=== PATIENT | male | born 1945 | race Caucasian/White ===

== ENCOUNTER 2017-03-31 19:20 | Inpatient (IN) | payer MEDICAID, OTHER ==
[~2017-03-31] VITALS: Ht 162.6 cm; Wt 119.3 kg
[2017-03-31] MEDS ORDERED: ONDANSETRON 4 MG INJ IV STA (21:20)
[2017-03-31] MEDS ORDERED: SOD CHLORIDE 0.9% 500 ML IV STA (21:20)
[2017-03-31] MEDS ORDERED: morphine 4 MG/ML VIAL IV STA (21:20)
[2017-03-31 22:22] LABS: BASOPHIL # 0.1 10^3/ul (0.0-0.1); BASOPHILS % 0.7 % (0.0-2.0); EOSINOPHILS # 0.1 10^3/ul (0.0-0.5); EOSINOPHILS % 0.6 % (0.0-7.0); HEMATOCRIT 45.8 % (42.0-52.0); HEMOGLOBIN 15.4 g/dl (14.0-18.0); LYMPHOCYTES # 2.2 10^3/ul (0.8-2.9); LYMPHOCYTES % 17.7 % (15.0-51.0); MEAN CORPUSCULAR HEMOGLOBIN 29.1 pg (29.0-33.0); MEAN CORPUSCULAR HGB CONC 33.6 g/dl (32.0-37.0); MEAN CORPUSCULAR VOLUME 86.4 fl (82.0-101.0); MEAN PLATELET VOLUME 9.6 fl (7.4-10.4); MONOCYTE # 0.6 10^3/ul (0.3-0.9); MONOCYTES % 5.2 % (0.0-11.0); NEUTROPHILS % 75.4 % (39.0-77.0); PLATELET COUNT 263 10^3/UL (140-415); RED CELL DISTRIBUTION WIDTH 13.3 % (11.5-14.5); WHITE BLOOD COUNT 12.3 10^3/ul (4.8-10.8)
[2017-03-31 22:50] LABS: ALANINE AMINOTRANSFERASE 31 IU/L (13-69); ALBUMIN 4.6 g/dl (3.3-4.9); ALBUMIN/GLOBULIN RATIO 1.12; ALKALINE PHOSPHATASE 105 IU/L (42-121); ANION GAP 19 (8-16); ASPARTATE AMINO TRANSFERASE 23 IU/L (15-46); BILIRUBIN,INDIRECT 0.2 mg/dl (0-1.1); BILIRUBIN,TOTAL 0.2 mg/dl (0.2-1.3); BLOOD UREA NITROGEN 15 mg/dl (7-20); CALCIUM 9.9 mg/dl (8.4-10.2); CARBON DIOXIDE 29 mmol/L (21-31); CHLORIDE 101 mmol/L (97-110); CREATININE 0.93 mg/dl (0.61-1.24); GLUCOSE 126 mg/dl (70-220); SODIUM 145 mmol/L (135-144); TOTAL PROTEIN 8.7 g/dl (6.1-8.1)
--- NOTE | 2017-03-31 22:57 | RADRPT ---
PROCEDURE: XR Chest. CLINICAL INDICATION: Epigastric pain. TECHNIQUE: Single frontal view of the chest. COMPARISON: None. FINDINGS: Cardiomegaly. Hypoinflated lungs accentuate pulmonary vascular markings with mild atelectasis at th e bilateral lung bases. There is a mild degree of pulmonary vascular congestion. No signs of pleura l fluid or pneumothorax are seen. The osseous structures and soft tissues are unremarkable. IMPRESSION: Cardiomegaly and mild pulmonary vascular congestion. RPTAT: [facility] Physician Mati Date Time Electronically viewed and signed by Physician Mati on 03/31/2017 22:56 RS/
[2017-03-31 23:04] LABS: TROPONIN-I < 0.012 ng/ml (0.00-0.12)
--- NOTE | 2017-03-31 23:08 | RADRPT ---
PROCEDURE: ULTRASOUND LIMITED ABDOMEN CLINICAL INDICATION: 71-year-old male with abdominal pain. TECHNIQUE: Multiple sonographic of the right upper quadrant of the abdomen were obtained. The imag es were reviewed on a PACS workstation. COMPARISON: None. FINDINGS: The pancreas is not well visualized secondary to overlying bowel gas. The liver displays diffuse increased echogenicity consistent with fatty infiltration. The liver yady sures 20.4 cm in length. No evidence of intrahepatic biliary ductal dilatation is seen. The portal and hepatic veins are unremarkable. The gallbladder demonstrates no wall thickening, sludge, nor stones. No pericholecystic fluid is see n. The common bile duct measures 3.4 mm and is not dilated. The right kidney displays normal echogenicity. The right kidney measures 10.2 cm in maximal length. No caliectasis or hydronephrosis is seen. No free fluid is seen. IMPRESSION: Hepatomegaly with fatty infiltration. .Alpesh Salomon MD, MD Date Time Electronically viewed and signed by .Alpesh Salomon MD, on 03/31/2017 23:08 .Yash/
[2017-04-01] VITALS (17 sets, daily range): BP systolic 136–185; BP diastolic 72–103; PULSE 67–86; RESP 13–20; Ht 162.6 cm; Wt 119.3 kg
[2017-04-01] MEDS ORDERED: HYDROCODONE/APAP (10/325) TAB PO ONE
--- NOTE | 2017-04-01 00:26 | RADRPT ---
PROCEDURE: CT abdomen and pelvis without contrast. CLINICAL INDICATION: Abdominal pain TECHNIQUE: CT scan of the abdomen and pelvis without contrast was performed. Sagittal and coronal reformatted images were obtained from the axial source images. CTDI = 23.48 mGy; DLP = 1004 of 41.1 4 mGy-cm COMPARISON: Ultrasound 03/31/2017 FINDINGS: Visualized lower thorax: Incidental calcified granuloma right lower lobe, no evidence of infiltrate s. There is no evidence for pleural effusion. Liver, gallbladder, pancreas and spleen: The liver is normal and size, contour and attenuation. Mu ltiple rounded water attenuating right hepatic lobe lesions compatible with cysts the largest estima zoraida at and 7.8 cm. No evidence of ductal dilatation. Multiple calcified gallstones are present. T here is no evidence of gallbladder wall thickening or pericholecystic inflammation. No common bile duct abnormality is demonstrated. The pancreas is unremarkable. The spleen is normal in size. Adrenal glands and genitourinary system: Ovoid hypodense nodule of 1.6 cm in the medial right adrena l gland likely an adenoma. The left adrenal gland is unremarkable. In the right kidney there are t iny 1 mm calculi in the interpolar and lower pole region without hydronephrosis. An additional tiny 1 mm interpolar left renal calculus is present without hydronephrosis. The ureters are unremarkabl e. Urinary bladder is partially contracted but otherwise grossly normal. The prostate gland is with in normal limits for size. The visualized scrotum shows no acute abnormality, a small fat-containin g left inguinal hernia is present. Gastrointestinal system: The stomach is normal in caliber without thickening. There is mild disten irene of the jejunum measuring 3.3 cm extending into a supraumbilical ventral hernia with there is a dilated loop of small bowel, the size of the hernia sac approximately 5 cm (series 3 images 91-102). There is collapse of the small bowel distal to the abnormality. The appendix and surrounding fat are within the limits of normal. 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 There is no [place] for colitis or diverticulitis. Peritoneum, retroperitoneum, lymph nodes and vessels: The abdominal aorta is normal in caliber. The re is mild aortic and iliac atherosclerotic calcification. The inferior vena cava is unremarkable. There is no evidence for adenopathy or mass. There is no ascites. No pneumoperitoneum is present. A small fat-containing umbilical hernia is present. Osseous structures and musculoskeletal findings: There is no fracture, lytic or blastic lesion. Mo derate multilevel degenerative spondylosis of the lumbar spine is noted. No muscular abnormality or soft tissue pathology is present. RPTAT:HJJR IMPRESSION: 1. Partial proximal small bowel obstruction related to a ventral supraumbilical hernia estimated at 5 cm and containing mildly dilated loop of jejunum. Collapse of the small bowel distal to the herni a is present. Follow-up evaluation is recommended. 2. No evidence of ascites or pneumoperitoneum. 3. Incidental hepatic cysts. 4. Cholelithiasis without cholecystitis. 5. Tiny nonobstructing intrarenal calculi. 6. Small left inguinal and pedicle fat-containing hernias. 7. Aortic atherosclerosis is present. Physician Urszula Date Time Electronically viewed and signed by Physician Urszula on 04/01/2017 00:26 /
[2017-04-01 00:52] LABS: ADD UMIC NO; UR ASCORBIC ACID NEGATIVE (NEGATIVE); UR BILIRUBIN (Dip) NEGATIVE (NEGATIVE); UR BLOOD (Dip) NEGATIVE (NEGATIVE); UR CLARITY CLEAR (CLEAR); UR COLOR STRAW (YELLOW); UR GLUCOSE (Dip) NEGATIVE (NEGATIVE); UR KETONES (Dip) NEGATIVE (NEGATIVE); UR LEUKOCYTE ESTERASE (Dip) NEGATIVE Leu/ul (NEGATIVE); UR NITRITE (Dip) NEGATIVE (NEGATIVE); UR SPECIFIC GRAVITY (Dip) 1.013 (1.003-1.030); UR TOTAL PROTEIN (Dip) NEGATIVE (NEGATIVE); UR UROBILINOGEN (Dip) NEGATIVE (NEGATIVE)
--- NOTE | 2017-04-01 01:33 | ERA ---
ER Documentation Chief Complaint Date/Time DATE: 04/01/17 TIME: 01:30 Chief Complaint mid abd pain x 1 day HPI 71-year-old male comes in with abdominal pain 1 day. Mild nausea no vomiting. Pain is mild to moderate intensity. He says he feels a "ball "right above his bellybutton. No other current complaints. Bowel is been there for 2-3 months. ROS All systems reviewed and are negative except as per history of present illness. Medications Home Meds No Active Prescriptions or Reported Meds Allergies Allergies: Coded Allergies: No Known Allergy (Unverified , 03/31/17) PMhx/Soc History of Surgery: Yes (Darrin Knee Surg) Anesthesia Reaction: No Hx Neurological Disorder: No Hx Respiratory Disorders: No Hx Cardiac Disorders: No Hx Psychiatric Problems: No Hx Miscellaneous Medical Probl: Yes (OA) Hx Alcohol Use: No Hx Substance Use: No Hx Tobacco Use: No Smoking Status: Never smoker Physical Exam Vitals Vital Signs Date Time Temp Pulse Resp B/P Pulse Ox O2 Delivery O2 Flow Rate FiO2 04/01/17 00:51 71 15 169/105 94 Room Air 03/31/17 19:27 97.7 83 20 231/129 97 Physical Exam Const: [] Head: Atraumatic Eyes: Normal Conjunctiva ENT: Normal External Ears, Nose and Mouth. Neck: Full range of motion..~ No meningismus. Resp: Clear to auscultation bilaterally Cardio: Regular rate and rhythm, no murmurs Abd: Soft, non tender, non distended. Normal bowel sounds Skin: No petechiae or rashes Back: No midline or flank tenderness Ext: No cyanosis, or edema Neur: Awake and alert Psych: Normal Mood and Affect Result Diagram: 03/31/17214403/31/172144 Results 24 hrs Laboratory Tests Test 03/31/17 21:45 03/31/17 23:45 White Blood Count 12.310^3/ul Red Blood Count 5.3010^6/ul Hemoglobin 15.4g/dl Hematocrit 45.8% Mean Corpuscular Volume 86.4fl Mean Corpuscular Hemoglobin 29.1pg Mean Corpuscular Hemoglobin Concent 33.6g/dl Red Cell Distribution Width 13.3% Platelet Count 11842^3/UL Mean Platelet Volume 9.6fl Neutrophils % 75.4% Lymphocytes % 17.7% Monocytes % 5.2% Eosinophils % 0.6% Basophils % 0.7% Nucleated Red Blood Cells % 0.0/100WBC Neutrophils # (Manual) 9.310^3/ul Lymphocytes # 2.210^3/ul Monocytes # 0.610^3/ul Eosinophils # 0.110^3/ul Basophils # 0.110^3/ul Nucleated Red Blood Cells # 0.010^3/ul Sodium Level 145mmol/L Potassium Level 4.0mmol/L Chloride Level 101mmol/L Carbon Dioxide Level 29mmol/L Anion Gap 19 Blood Urea Nitrogen 15mg/dl Creatinine 0.93mg/dl Glucose Level 126mg/dl Calcium Level 9.9mg/dl Total Bilirubin 0.2mg/dl Direct Bilirubin 0.00mg/dl Indirect Bilirubin 0.2mg/dl Aspartate Amino Transf (AST/SGOT) 23IU/L Alanine Aminotransferase (ALT/SGPT) 31IU/L Alkaline Phosphatase 105IU/L Troponin I < 0.012ng/ml Total Protein 8.7g/dl Albumin 4.6g/dl Globulin 4.10g/dl Albumin/Globulin Ratio 1.12 Lipase 75U/L Urine Color STRAW Urine Clarity CLEAR Urine pH 7.0 Urine Specific [place] 1.013 Urine Ketones NEGATIVEmg/dL Urine Nitrite NEGATIVEmg/dL Urine Bilirubin NEGATIVEmg/dL Urine Urobilinogen NEGATIVEmg/dL Urine Leukocyte Esterase NEGATIVELeu/ul Urine Hemoglobin NEGATIVEmg/dL Urine Glucose NEGATIVEmg/dL Urine Total Protein NEGATIVEmg/dl Current Medications Medications (Trade) Dose Ordered Sig/Lana Route PRN Reason Start Time Stop Time Status Last Admin Dose Admin Sodium Chloride (NS) 500 ml @ 500 mls/hr Q1H STAT IV 03/31/17 21:20 03/31/17 22:19 DC 03/31/17 21:42 Morphine Sulfate (morphine) 4 mg ONCE STAT IV 03/31/17 21:20 03/31/17 21:23 DC 03/31/17 22:02 Ondansetron HCl (Zofran Inj) 4 mg ONCE STAT IV 03/31/17 21:20 03/31/17 21:23 DC 03/31/17 22:01 Acetaminophen/ Hydrocodone Bitart ([place] (10/325)) 1 tab ONCE ONCE PO 04/01/17 00:00 04/01/17 00:06 DC 03/31/17 23:59 Procedures/MDM EKG: Rate/Rhythm: Normal Sinus Rhythm QRS, ST, T-waves: No changes consistent w/ acute ischemia Impression: No evidence of ischemia or arrhythmia Chest X-ray 1V Interpreted by me: Soft Tissue: No acute abnormalities Bones: No acute abnormalities Mediastinum/Cardiac Silhouette/Lungs: No acute abnormalities Medical decision-makin 11-year-old male with small bowel obstruction secondary to ventral abdominal hernia. Patient will be admitted to hospitalist. Dr. Cao consulted for surgery. Departure Diagnosis: Primary Impression: Abdominal pain Qualified Code: R10.84 - Generalized abdominal pain Additional Impression: Small bowel obstruction Condition: Serious BETHEL WHITING Apr 01, 2017 01:33
[2017-04-01] MEDS: hydrALAzine 20 MG INJ IV PRN (02:51)
[2017-04-01] MEDS ORDERED: ONDANSETRON 4 MG INJ IV PRN ×3 (03:00→13:30)
[2017-04-01] MEDS ORDERED: morphine 2 MG INJ IV PRN ×2 (03:00→13:00)
[2017-04-01] MEDS ORDERED: DEXTROSE 5%-0.45% NACL 1,000 ML IV SCH (03:00)
--- NOTE | 2017-04-01 04:54 | HP ---
Date/Time of Note Date/Time of Note DATE: 04/01/17 TIME: 04:41 Assessment/Plan VTE Prophylaxis VTE Prophylaxis Intervention: SCD's Lines/Catheters IV Catheter Type (from Nrsg): Saline Lock Assessment/Plan Assessment/Plan 1. Small bowel obstruction -Keep n.p.o. with IV fluid -Plan is to place an NG tube with low intermittent suction, however patient repeatedly refused even when his daughter at the bedside advised him to agree. She did however say he was reconsider in the morning. -Pain management -Awaiting surgical evaluation 2. Abdominal pain, secondary to SBO -See #1 3. Hypertensive urgency -Adjust BP meds as needed 4. SIRS: Likely related to bowel obstruction -Pain management and antibiotic 5. Morbid obesity, with a BMI of 45 -Weight reduction has been advised HPI/ROS Admit Date/Time Admit Date/Time Apr 01, 2017 at 00:46 Hx of Present Illness This is a 71-year-old morbidly obese male with a history of hypertension, osteoarthritis, bilateral knee surgery who presented to emergency department complaining of abdominal pain. Pain started about a week ago and has been progressively getting worse. It is diffuse, but mainly located in the periumbilical area. He said 2 or 3 days ago, he noticed swelling in the periumbilical area and he said that is where it hurts the most. Initially pain was mild and as such he did not seek help but when started getting worse he decided to come to the ER for evaluation. He also reported associated nausea and having had nonbilious nonbloody vomiting. When presented to the ER, blood pressure was 231/129. Labs shows WBC of 12.3. CT abdomen/pelvis shows Partial proximal small bowel obstruction related to a ventral supraumbilical hernia estimated at 5 cm and containing mildly dilated loop of jejunum, collapse of the small bowel distal to the hernia is present and cholelithiasis without cholecystitis. Right upper quadrant ultrasound shows fatty liver. Once patient was admitted, he continues complaining of abdominal pain. He refused placement of an NG tube, but he said he will reconsider it in the morning. PMH/Family/Social Past Medical History Medical History: hypertension Past Surgical History Past Surgical Hx: other (Bilateral knee surgery) Social History Alcohol Use: occasionally Smoking Status: Never smoker Drug Use: none Exam/Review of Systems Vital Signs Vitals Vital Signs Date Time Temp Pulse Resp B/P Pulse Ox O2 Delivery O2 Flow Rate FiO2 04/01/17 02:30 98.0 73 18 185/103 94 Room Air Intake and Output 03/31/17 03/31/17 04/01/17 15:00 23:00 07:00 Intake Total 500 ml Balance 500 ml Exam Constitutional: other (Morbidly obese male lying in bed in mild distress) Head: atraumatic, normocephalic Eyes: EOMI, PERRL Respiratory: clear to auscultation, normal air movement Cardiovascular: other (Tachycardic with regular rhythm) Gastrointestinal: other (Obese. There is tender. Jacinta-umbilical hernia.) Extremities: normal pulses Labs Result Diagram: 03/31/17214403/31/172144 Medications Medications Current Medications Hydralazine HCl 10 mg 10 mg Q4H PRN IV ELEVATED SYSTOLIC BP Last administered on 04/01/17 02:51; Admin Dose 10 MG; Start 04/01/17 at 03:00 Dextrose/Sodium Chloride (D5-1/2ns) 1,000 ml @ 100 mls/hr Q10H IV Last administered on 04/01/17 02:51; Admin Dose 100 MLS/HR; Start 04/01/17 at 03:00 Ondansetron HCl (Zofran Inj) 4 mg Q6H PRN IV NAUSEA AND/OR VOMITING Last administered on 04/01/17 03:22; Admin Dose 4 MG; Start 04/01/17 at 03:00 Morphine Sulfate (morphine) 2 mg Q4H PRN IV PAIN Last administered on 03:21; Admin Dose 2 MG; Start 04/01/17 at 03:00 BETHEL WYNN MD Apr 01, 2017 04:52
[2017-04-01] MEDS: CEFTRIAXONE 1 GM/50 ML (PMX) 50 ML IVPB SCH ×2 (05:12→17:09)
[2017-04-01] MEDS: HYDROmorphONE 1 MG/ML SYG IV PRN ×2 (05:12→23:53)
--- NOTE | 2017-04-01 05:47 | CONS ---
Date/Time of Note Date/Time of Note DATE: 04/01/17 TIME: 05:43 Assessment/Plan Assessment/Plan Additional Assessment/Plan Incarcerated supraumbilical hernia Require surgery semi-urgently Discussed repair of incarcerated supraumbilical hernia with mesh All benefits, risks, alternatives discussed in detail. All questions were answered. The patient elects to proceed Consultation Date/Type/Reason Admit Date/Time Apr 01, 2017 at 00:46 Date of Consultation: Apr 01, 2017 Hx of Present Illness The patient is a 71-year-old male with a 2 day history of abdominal pain and swelling to his umbilical area. Patient has had a known hernia for quite some time but has not been symptomatic. However, she had increasing pain and presented to the ER this evening. He describes nausea as well as emesis. Past Medical History Medical History: hypertension Past Surgical History Past Surgical Hx: other (Bilateral knee surgery) Family History Significant Family History: no pertinent family hx Social History Alcohol Use: occasionally Smoking Status: Never smoker Drug Use: none Exam/Review of Systems Vital Signs Vitals Vital Signs Date Time Temp Pulse Resp B/P Pulse Ox O2 Delivery O2 Flow Rate FiO2 04/01/17 04:00 67 16 136/75 Room Air 04/01/17 02:30 98.0 94 Intake and Output 03/31/17 03/31/17 04/01/17 15:00 23:00 07:00 Intake Total 500 ml Balance 500 ml Exam Constitutional: alert, oriented, well developed Psych: no complaints Head: normocephalic Eyes: nl conjunctiva ENMT: nl external ears & nose Neck: supple Respiratory: clear to auscultation Cardiovascular: regular rate and rhythm Gastrointestinal: other (Soft, mildly distended, tender nonreducible supraumbilical hernia) Musculoskeletal: nl extremities to inspection Neurological: SUPPORT TEACHER II-XII intact Skin: nl turgor Results Result Diagram: 03/31/17214403/31/172144 Results 24 hrs Laboratory Tests Test 03/31/17 21:45 03/31/17 23:45 White Blood Count 12.3 H Red Blood Count 5.30 Hemoglobin 15.4 Hematocrit 45.8 Mean Corpuscular Volume 86.4 Mean Corpuscular Hemoglobin 29.1 Mean Corpuscular Hemoglobin Concent 33.6 Red Cell Distribution Width 13.3 Platelet Count 263 Mean Platelet Volume 9.6 Neutrophils % 75.4 Lymphocytes % 17.7 Monocytes % 5.2 Eosinophils % 0.6 Basophils % 0.7 Nucleated Red Blood Cells % 0.0 Neutrophils # (Manual) 9.3 H Lymphocytes # 2.2 Monocytes # 0.6 Eosinophils # 0.1 Basophils # 0.1 Nucleated Red Blood Cells # 0.0 Sodium Level 145 H Potassium Level 4.0 Chloride Level 101 Carbon Dioxide Level 29 Anion Gap 19 H Blood Urea Nitrogen 15 Creatinine 0.93 Glucose Level 126 Calcium Level 9.9 Total Bilirubin 0.2 Direct Bilirubin 0.00 Indirect Bilirubin 0.2 Aspartate Amino Transf (AST/SGOT) 23 Alanine Aminotransferase (ALT/SGPT) 31 Alkaline Phosphatase 105 Troponin I < 0.012 Total Protein 8.7 H Albumin 4.6 Globulin 4.10 H Albumin/Globulin Ratio 1.12 Lipase 75 Urine Color STRAW Urine Clarity CLEAR Urine pH 7.0 Urine Specific [place] 1.013 Urine Ketones NEGATIVE Urine Nitrite NEGATIVE Urine Bilirubin NEGATIVE Urine Urobilinogen NEGATIVE Urine Leukocyte Esterase NEGATIVE Urine Hemoglobin NEGATIVE Urine Glucose NEGATIVE Urine Total Protein NEGATIVE Medications Medications Current Medications Hydralazine HCl 10 mg 10 mg Q4H PRN IV ELEVATED SYSTOLIC BP Last administered on 04/01/17 02:51; Admin Dose 10 MG; Start 04/01/17 at 03:00 Dextrose/Sodium Chloride (D5-1/2ns) 1,000 ml @ 100 mls/hr Q10H IV Last administered on 04/01/17 02:51; Admin Dose 100 MLS/HR; Start 04/01/17 at 03:00 Ondansetron HCl (Zofran Inj) 4 mg Q6H PRN IV NAUSEA AND/OR VOMITING Last administered on 04/01/17 03:22; Admin Dose 4 MG; Start 04/01/17 at 03:00 Morphine Sulfate (morphine) 4 mg Q4H PRN IV PAIN; Start 04/01/17 at 07:00 Hydromorphone HCl 1 mg 1 mg Q4H PRN IV PAIN Last administered on 04/01/17 05: 12; Admin Dose 1 MG; Start 04/01/17 at 05:00 Ceftriaxone Sodium (Rocephin) 50 ml @ 100 mls/hr Q12H IVPB Last administered on 04/01/17 05:12; Admin Dose 100 MLS/HR; Start 04/01/17 at 05:00 Procedures Procedures Abdominal pelvis CT IMPRESSION: 1. Partial proximal small bowel obstruction related to a ventral supraumbilical hernia estimated at 5 cm and containing mildly dilated loop of jejunum. Collapse of the small bowel distal to the hernia is present. Follow-up evaluation is recommended. 2. No evidence of ascites or pneumoperitoneum. 3. Incidental hepatic cysts. 4. Cholelithiasis without cholecystitis. 5. Tiny nonobstructing intrarenal calculi. 6. Small left inguinal and pedicle fat-containing hernias. 7. Aortic atherosclerosis is present. ELMER VELAZCO MD Apr 01, 2017 05:47
[2017-04-01 06:01] LABS: BASOPHIL # 0.1 10^3/ul (0.0-0.1); BASOPHILS % 0.3 % (0.0-2.0); EOSINOPHILS % 0.2 % (0.0-7.0); HEMATOCRIT 44.9 % (42.0-52.0); LYMPHOCYTES # 1.3 10^3/ul (0.8-2.9); LYMPHOCYTES % 6.9 % (15.0-51.0); MEAN CORPUSCULAR HGB CONC 33.4 g/dl (32.0-37.0); MEAN CORPUSCULAR VOLUME 86.7 fl (82.0-101.0); MEAN PLATELET VOLUME 9.8 fl (7.4-10.4); MONOCYTE # 1.1 10^3/ul (0.3-0.9); MONOCYTES % 5.9 % (0.0-11.0); NEUTROPHILS % 86.2 % (39.0-77.0); PLATELET COUNT 238 10^3/UL (140-415); RED BLOOD COUNT 5.18 10^6/ul (4.70-6.10); RED CELL DISTRIBUTION WIDTH 13.4 % (11.5-14.5); WHITE BLOOD COUNT 19.1 10^3/ul (4.8-10.8)
[2017-04-01 06:41] LABS: ALBUMIN 4.2 g/dl (3.3-4.9); ALBUMIN/GLOBULIN RATIO 1.13; BILIRUBIN,INDIRECT 0.2 mg/dl (0-1.1); BILIRUBIN,TOTAL 0.2 mg/dl (0.2-1.3); CALCIUM 9.1 mg/dl (8.4-10.2); CREATININE 0.84 mg/dl (0.61-1.24); MAGNESIUM 2.3 mg/dl (1.7-2.5); PHOSPHORUS 3.6 mg/dl (2.5-4.9); POTASSIUM 3.4 mmol/L (3.5-5.1); TOTAL PROTEIN 7.9 g/dl (6.1-8.1)
[2017-04-01] MEDS ORDERED: morphine 4 MG/ML VIAL IV PRN (07:00)
[2017-04-01] MEDS ORDERED: hydrALAzine 20 MG INJ IV PRN ×2 (12:00→13:30)
[2017-04-01] MEDS ORDERED: BUPIVACAINE 0.25% (MPF) 30 ML INJ ONE (12:23)
[2017-04-01] MEDS ORDERED: POLYMYXIN/BACITRACIN 1L IRRIG ONE (12:23)
[2017-04-01] MEDS ORDERED: MIDAZOLAM 1 MG/ML 2 ML INJ ONE (12:44)
[2017-04-01] MEDS ORDERED: ROCURONIUM 50 MG INJ ONE (12:44)
[2017-04-01] MEDS ORDERED: SUCCINYLCHOLINE CHLORIDE 100 MG/5 ML SYG IV ONE (12:44)
[2017-04-01] MEDS ORDERED: PROPOFOL 40 ML ONE (12:44)
[2017-04-01] MEDS ORDERED: ROPIVACAINE 0.5 % 30 ML VIAL ONE (12:44)
[2017-04-01] MEDS ORDERED: FENTAnyl 50 MCG/ML VIAL ONE (12:45)
[2017-04-01] MEDS ORDERED: CEFAZOLIN 2 GM/50 ML (PMX) 50 ML IVPB SCH (13:00)
[2017-04-01] MEDS ORDERED: PHENYLephrine (100 MCG/ML) 5ML SYG ONE (13:03)
[2017-04-01] MEDS ORDERED: METOCLOPRAMIDE 10 MG INJ ONE (13:18)
[2017-04-01] MEDS ORDERED: DEXAMETHASONE 4 MG/ML 1 ML INJ ONE ×2 (13:18→13:48)
[2017-04-01] MEDS ORDERED: ONDANSETRON 4 MG INJ ONE (13:18)
[2017-04-01] MEDS ORDERED: KETOROLAC 30 MG INJ ONE (13:18)
[2017-04-01] MEDS ORDERED: SUGAMMADEX SODIUM 200 MG/2 ML VIAL IV ONE (13:26)
[2017-04-01] MEDS ORDERED: HYDROmorphONE (0.2 MG/ML) 10ML SYG IV PRN ×3 (13:30)
[2017-04-01] MEDS ORDERED: METOCLOPRAMIDE 10 MG INJ IV PRN (13:30)
[2017-04-01] MEDS ORDERED: DIPHENHYDRAMINE 50 MG INJ IV PRN (13:30)
[2017-04-01] MEDS ORDERED: morphine (1 MG/ML) 10ML SYRINGE IV PRN ×3 (13:30)
[2017-04-01] MEDS ORDERED: FENTAnyl 50 MCG/ML VIAL IV PRN ×3 (13:30)
[2017-04-01] MEDS ORDERED: LABETALOL HCL 20MG INJ IV PRN (13:30)
[2017-04-01] MEDS ORDERED: EPHEDrine SULFATE 50 MG/5 ML SYG IV PRN (13:30)
[2017-04-01] MEDS ORDERED: MEPERIDINE 25 MG INJ IV PRN (13:30)
[2017-04-01] MEDS ORDERED: ALBUTEROL 0.083% (NEB) 2.5 MG/3 ML AMP ONE ×2 (13:46→13:55)
[2017-04-01] MEDS ORDERED: DIPHENHYDRAMINE 50 MG INJ ONE (13:48)
[2017-04-01] MEDS ORDERED: HYDROCORTISONE 100 MG INJ ONE ×2 (13:49→14:04)
[2017-04-01] MEDS ORDERED: LABETALOL HCL 20MG INJ ONE (14:06)
--- NOTE | 2017-04-01 14:16 | RADRPT ---
PROCEDURE: XR Chest. CLINICAL INDICATION: DECREASED BREATH SOUNDS IN O.R. #6 TECHNIQUE: Single frontal view of the chest was obtained. COMPARISON: Chest x-ray from 03/31/2017 FINDINGS: There has been interval intubation with the tip of the endotracheal tube in the right mainstem bronc hus. There are low lung volumes and moderate apparent cardiomegaly with prominence of interstitial markin gs, likely due to a combination of congestive changes and vascular crowding. There is no significant pleural effusion or pneumothorax. IMPRESSION: Interval intubation with the tip of the endotracheal tube in the right mainstem bronchus. Recommend retraction by 3.5 cm. Low lung volumes and moderate apparent cardiomegaly with prominence of interstitial markings, likely due to a combination of congestive changes and vascular crowding. These findings were discussed with Jose Alfredo Felton over the phone on 04/01/2017 at 2:15 PM . RPTAT: EE Physician Leon Date Time Electronically viewed and signed by Physician Leon on 04/01/2017 14:15 /
[2017-04-01] MEDS ORDERED: RACEPINEPHRINE 2.25%(NEB) 0.5 ML AMP ONE (14:34)
[2017-04-01] MEDS: D5W-0.45 NACL + KCL 20 MEQ 1,000 ML IV SCH ×2 (16:41→22:42)
--- NOTE | 2017-04-01 17:44 | OPR ---
DATE OF OPERATION: 04/01/2017 PREOPERATIVE DIAGNOSIS: Incarcerated small bowel obstruction secondary to incarcerated ventral hernia. POSTOPERATIVE DIAGNOSIS: Incarcerated small bowel obstruction secondary to incarcerated ventral hernia. OPERATIVE PROCEDURES: 1. Repair of incarcerated ventral hernia with mesh. 2. Reduction of small bowel. SURGEON: Dr. Wilson Cao. SOLOIST DANCER: None. ANESTHESIA: Endotracheal. ANESTHESIOLOGIST: Dr. Ibarra ESTIMATED BLOOD LOSS: Minimal. COMPLICATIONS: None. SPECIMEN: None. FINDINGS: 3 cm ventral hernia containing small bowel. There was no signs of ischemia in the small bowel. Medium Ventralex patch. INDICATIONS: Mr. Avalos is a 71-year-old male with a known ventral hernia. Eating last night caused him significant pain, nausea, and vomiting. He presented to the ER where workup was consistent with a small bowel obstruction due to the ventral hernia. I was unable to reduce it. I discussed proceeding with urgent surgery. I discussed repair of incarcerated ventral hernia with mesh and possible bowel resection. All benefits, risks, alternatives discussed in detail with the patient. All questions answered. The patient wants to proceed with the surgery. OPERATION PERFORMED: The patient was brought to the operative room, placed supine on the operative table, preop antibiotics, and SCDs were placed. The abdomen was prepped and draped in sterile fashion. The area around the ventral hernia was widely infiltrated with 5 percent lidocaine with epi and 0.5 percent Marcaine. A midline incision was made over the ventral hernia. Using electrocautery I dissected down through subcutaneous tissue until I identified the hernia sac. I dissected the hernia sac off the surrounding structures. I opened the hernia sac and identified the small bowel. The bowel was pink and viable. It was easily reduced through the fascial defect. I then transected the hernia sac and passed it off the field. The fascial defect was approximately 3 cm. There were no omental or other adhesions to the fascia. I created space at the 3 o'clock and 9 o'clock position above the anterior abdominal fascia. I then deployed a medium Ventralex mesh through the defect and pulled up against the abdominal wall. I made sure it was only deployed. I then sutured the 2 leaves of the mesh at the 3 o'clock and 9 o'clock position to the anterior fascia with 0 Ethibond suture. At the 12 and 6 o'clock position I placed full thickness through the polypropylene portion of the through full thickness of the abdominal wall to further anchor the mesh. The mesh had nicely covered the defect well, there was no gaps. I irrigated the wound. I closed the full thickness tissue over the mesh with interrupted 3 Vicryl and skin was closed with 4-0 Monocryl, Steri- Strips and 2 x 2. The patient are procedure well. He was extubated in the OR and transferred to the recovery room in stable condition. Dictated By: Wilson Cao MD /haydee/sam /Document#: [id number] MICHAEL
[2017-04-02 02:14] VITALS: BP 147/72; RESP 20
[2017-04-02] MEDS: CEFTRIAXONE 1 GM/50 ML (PMX) 50 ML IVPB SCH (05:06)
[2017-04-02] MEDS: D5W-0.45 NACL + KCL 20 MEQ 1,000 ML IV SCH ×3 (05:09→18:44)
[2017-04-02] MEDS ORDERED: PANTOPRAZOLE 40 MG INJ IV SCH (06:00)
[2017-04-02 06:27] LABS: BASOPHILS % 0.1 % (0.0-2.0); EOSINOPHILS % 0.1 % (0.0-7.0); HEMATOCRIT 40.9 % (42.0-52.0); HEMOGLOBIN 13.7 g/dl (14.0-18.0); LYMPHOCYTES # 2.3 10^3/ul (0.8-2.9); MEAN CORPUSCULAR HEMOGLOBIN 29.3 pg (29.0-33.0); MEAN CORPUSCULAR HGB CONC 33.5 g/dl (32.0-37.0); MEAN CORPUSCULAR VOLUME 87.6 fl (82.0-101.0); MEAN PLATELET VOLUME 9.9 fl (7.4-10.4); MONOCYTE # 1.2 10^3/ul (0.3-0.9); MONOCYTES % 8.3 % (0.0-11.0); NEUTROPHILS % 76.1 % (39.0-77.0); PLATELET COUNT 240 10^3/UL (140-415); RED BLOOD COUNT 4.67 10^6/ul (4.70-6.10); RED CELL DISTRIBUTION WIDTH 13.6 % (11.5-14.5)
[2017-04-02 06:40] LABS: ALBUMIN 3.8 g/dl (3.3-4.9); ALBUMIN/GLOBULIN RATIO 1.15; BILIRUBIN,INDIRECT 0.3 mg/dl (0-1.1); BILIRUBIN,TOTAL 0.3 mg/dl (0.2-1.3); CALCIUM 8.6 mg/dl (8.4-10.2); CREATININE 0.97 mg/dl (0.61-1.24); POTASSIUM 3.6 mmol/L (3.5-5.1); TOTAL PROTEIN 7.1 g/dl (6.1-8.1)
[2017-04-02] MEDS: ENOXAPARIN 40 MG/0.4 ML SYG SC SCH (06:57)
[2017-04-02 07:56] VITALS: BP 172/86; RESP 18
[2017-04-02] MEDS: hydrALAzine 20 MG INJ IV PRN (08:49)
[2017-04-02] MEDS: HYDROmorphONE 1 MG/ML SYG IV PRN (14:05)
[2017-04-02 15:44] VITALS: BP 172/90; RESP 16
--- NOTE | 2017-04-02 16:00 | PN ---
Date/Time of Note Date/Time of Note DATE: 04/02/17 TIME: 15:58 Assessment/Plan VTE Prophylaxis VTE Prophylaxis Intervention: SCD's Lines/Catheters IV Catheter Type (from Nrs): Peripheral IV Assessment/Plan Chief Complaint/Hosp Course Patient is a 71-year-old male with no significant past medical history presents with abdominal pain, found to have small bowel obstruction and incarcerated hernia Assessment and problem list Abdominal pain Small bowel obstruction Incarcerated hernia Hypertensive urgency Morbid obesity Leukocytosis, resolving Hypokalemia, resolving mild Plan -Status post abdominal mesh per general surgery -Still has NG tube to suction with drainage, will advance diet when okay with surgery -Pain control as needed -Fluids with potassium -Replete electrolytes as necessary -Monitor blood pressure closely, as needed hydralazine for now, will start amlodipine and other hypertensive medications once taking oral -Repeat labs in the morning Problems: Subjective 24 Hr Interval Summary Free Text/Dictation still has generalized abdominal pain, but wants to eat. Exam/Review of Systems Vital Signs Vitals Vital Signs Date Time Temp Pulse Resp B/P Pulse Ox O2 Delivery O2 Flow Rate FiO2 04/02/17 15:44 98.7 66 16 172/90 92 04/01/17 15:21 Nasal Cannula 2.0 Intake and Output 04/01/17 04/01/17 04/02/17 15:00 23:00 07:00 Intake Total 1500 ml 250 ml 850 ml Output Total 70 ml 100 ml 650 ml Balance 1430 ml 150 ml 200 ml Exam Physical exam General: Patient is laying in bed and answers questions appropriately, ng tube in Mentation: Patient is alert and oriented 4, Head: Normocephalic atraumatic Eyes: EOMI, pupils reactive to light Neck: Supple, nontender, midline Respiratory: Clear to auscultation bilaterally Cardiovascular: regular rate, no obvious murmurs Gastrointestinal: mild tenderness to palpation, abdominal surgical site with bandage, CDI. Neurological: Moves all extremities spontaneously Skin: No new skin lesions Results Result Diagram: 04/02/17 0535 04/02/17 0535 Results 24 hrs Laboratory Tests Test 04/02/17 05:35 White Blood Count 15.0 #H Red Blood Count 4.67 L Hemoglobin 13.7 L Hematocrit 40.9 L Mean Corpuscular Volume 87.6 Mean Corpuscular Hemoglobin 29.3 Mean Corpuscular Hemoglobin Concent 33.5 Red Cell Distribution Width 13.6 Platelet Count 240 Mean Platelet Volume 9.9 Neutrophils % 76.1 Lymphocytes % 15.0 Monocytes % 8.3 Eosinophils % 0.1 Basophils % 0.1 Nucleated Red Blood Cells % 0.0 Neutrophils # (Manual) 11.4 H Lymphocytes # 2.3 Monocytes # 1.2 H Eosinophils # 0.0 Basophils # 0.0 Nucleated Red Blood Cells # 0.0 Sodium Level 140 Potassium Level 3.6 Chloride Level 103 Carbon Dioxide Level 27 Anion Gap 14 Blood Urea Nitrogen 13 Creatinine 0.97 Glucose Level 129 # Calcium Level 8.6 Total Bilirubin 0.3 Direct Bilirubin 0.00 Indirect Bilirubin 0.3 Aspartate Amino Transf (AST/SGOT) 19 Alanine Aminotransferase (ALT/SGPT) 25 Alkaline Phosphatase 73 Total Protein 7.1 Albumin 3.8 Globulin 3.30 H Albumin/Globulin Ratio 1.15 Medications Medications Current Medications Hydralazine HCl (Apresoline) 10 mg Q4H PRN IV ELEVATED SYSTOLIC BP Last administered on 04/02/17 08:49; Admin Dose 10 MG; Start 04/01/17 at 03:00 Ondansetron HCl (Zofran Inj) 4 mg Q6H PRN IV NAUSEA AND/OR VOMITING Last administered on 04/01/17 03:22; Admin Dose 4 MG; Start 04/01/17 at 03:00 Hydromorphone HCl (Dilaudid) 1 mg Q4H PRN IV PAIN Last administered on 14:05; Admin Dose 1 MG; Start 04/01/17 at 05:00 Morphine Sulfate (morphine) 4 mg Q2H PRN IV PAIN LEVEL 6-10; Start 04/01/17 at 13:00 Pantoprazole 40 mg 40 mg DAILY@06 IV Last administered on 04/02/17 05:06; Admin Dose 40 MG; Start 04/02/17 at 06:00 Potassium Chloride/Dextrose/ Sod Cl (D5-1/2ns + KCl 20 Meq) 1,000 ml @ 100 mls/ hr Q10H IV Last administered on 04/02/17 05:09; Admin Dose 100 MLS/HR; Start 04/01/17 at 12:42 Enoxaparin Sodium (Lovenox) 40 mg DAILY@07 SC Last administered on 04/02/17 06 :57; Admin Dose 40 MG; Start 04/02/17 at 07:00 Amlodipine Besylate (Norvasc) 10 mg DAILY PO ; Start 04/03/17 at 09:00 CURTIS WYATT Apr 02, 2017 16:00
[2017-04-02] MEDS ORDERED: morphine 4 MG/ML VIAL IV PRN (17:02)
--- NOTE | 2017-04-02 18:56 | PN ---
Date/Time of Note Date/Time of Note DATE: 04/02/17 TIME: 18:54 Assessment/Plan Lines/Catheters IV C[facility]ter Type (from [facility]): Peripheral IV Assessment/Plan Chief Complaint/Hosp Course The patient is a 71-year-old male with a 2 day history of abdominal pain and swelling to his umbilical area. Patient has had a known hernia for quite some time but has not been symptomatic. However, she had increasing pain and presented to the ER this evening. He describes nausea as well as emesis. Problems: Assessment/Plan Umbilical hernia repair postop day 2 Soft diet in a.m. Okay for discharge from surgical perspective in a.m. Subjective 24 Hr Interval Summary Patient complaining of some pain. Tolerating clears. Positive flatus Exam/Review of Systems Vital Signs Vitals Vital Signs Date Time Temp Pulse Resp B/P Pulse Ox O2 Delivery O2 Flow Rate FiO2 04/02/17 15:44 98.7 66 16 172/90 92 04/01/17 15:21 Nasal Cannula 2.0 Intake and Output 04/01/17 04/01/17 04/02/17 15:00 23:00 07:00 Intake Total 1500 ml 250 ml 850 ml Output Total 70 ml 100 ml 650 ml Balance 1430 ml 150 ml 200 ml Exam Constitutional: alert, oriented, well developed Neck: supple Respiratory: clear to auscultation Gastrointestinal: other (Tenderness to incision), soft Additional Comments Wound: Clean, dry, intact Results Result Diagram: 04/02/17 0535 04/02/17 0535 ELMER VELAZCO MD Apr 02, 2017 18:56
[2017-04-02 19:36] VITALS: BP 151/81; RESP 20
[2017-04-03 01:54] VITALS: BP 165/96; RESP 20
[2017-04-03] MEDS: D5W-0.45 NACL + KCL 20 MEQ 1,000 ML IV SCH (04:42)
[2017-04-03 06:29] LABS: BASOPHIL # 0.1 10^3/ul (0.0-0.1); BASOPHILS % 0.5 % (0.0-2.0); EOSINOPHILS # 0.3 10^3/ul (0.0-0.5); EOSINOPHILS % 2.6 % (0.0-7.0); HEMATOCRIT 44.2 % (42.0-52.0); HEMOGLOBIN 14.6 g/dl (14.0-18.0); LYMPHOCYTES # 3.6 10^3/ul (0.8-2.9); LYMPHOCYTES % 27.3 % (15.0-51.0); MEAN CORPUSCULAR HEMOGLOBIN 28.9 pg (29.0-33.0); MEAN CORPUSCULAR VOLUME 87.5 fl (82.0-101.0); MONOCYTE # 1.2 10^3/ul (0.3-0.9); MONOCYTES % 9.1 % (0.0-11.0); PLATELET COUNT 238 10^3/UL (140-415); RED BLOOD COUNT 5.05 10^6/ul (4.70-6.10); RED CELL DISTRIBUTION WIDTH 13.7 % (11.5-14.5); WHITE BLOOD COUNT 13.3 10^3/ul (4.8-10.8)
[2017-04-03 06:54] LABS: CREATININE 0.9 mg/dl (0.61-1.24); MAGNESIUM 2.2 mg/dl (1.7-2.5); POTASSIUM 3.6 mmol/L (3.5-5.1)
[2017-04-03 07:24] VITALS: BP 165/99; RESP 19
[2017-04-03] MEDS: AMLODIPINE 10 MG TAB PO SCH (08:50)
[2017-04-03] MEDS ORDERED: FAMOTIDINE 20 MG INJ IV SCH (09:00)
[2017-04-03] MEDS: ENOXAPARIN 40 MG/0.4 ML SYG SC SCH (09:48)
[2017-04-03] MEDS ORDERED: morphine 2 MG INJ IV PRN (10:30)
[2017-04-03] MEDS ORDERED: HYDROCODONE/APAP (5/325) TAB PO PRN (10:30)
[2017-04-03] MEDS ORDERED: ACETAMINOPHEN 325 MG TAB PO PRN (10:30)
[2017-04-03 13:11] VITALS: BP 149/93; RESP 19
--- NOTE | 2017-04-03 14:52 | PN ---
Date/Time of Note Date/Time of Note DATE: 04/03/17 TIME: 14:46 Assessment/Plan VTE Prophylaxis VTE Prophylaxis Intervention: ambulation Lines/Catheters IV Catheter Type (from Nrs): Peripheral IV Assessment/Plan Chief Complaint/Hosp Course Patient is a 71-year-old male with no significant past medical history presents with abdominal pain, found to have small bowel obstruction and incarcerated hernia Assessment and problem list Abdominal pain Small bowel obstruction Incarcerated hernia s/p abdominal mesh repair Hypertensive urgency Morbid obesity Leukocytosis, resolving Hypokalemia, resolving mild Plan -Status post abdominal mesh per general surgery -eating well, cleared by surgery -BP is an issue, patient sbp high and diastolic very high, will monitor on amlodipine overnight with prn medication -stop fluids, patient eating -cough suppressant as it hurts when patient coughs. Problems: Exam/Review of Systems Vital Signs Vitals Vital Signs Date Time Temp Pulse Resp B/P Pulse Ox O2 Delivery O2 Flow Rate FiO2 04/03/17 13:11 98.3 94 19 149/93 95 04/01/17 15:21 Nasal Cannula 2.0 Intake and Output 04/02/17 04/02/17 04/03/17 15:00 23:00 07:00 Intake Total 1520 ml 1220 ml Output Total 350 ml Balance 1520 ml 870 ml Exam Physical exam General: Patient is laying in bed and answers questions appropriately Mentation: Patient is alert and oriented 4, Head: Normocephalic atraumatic Eyes: EOMI, pupils reactive to light Neck: Supple, nontender, midline Respiratory: Clear to auscultation bilaterally Cardiovascular: regular rate, no obvious murmurs Gastrointestinal: minimal tenderness to palpation, abdominal surgical site with bandage, CDI. Neurological: Moves all extremities spontaneously Skin: No new skin lesions Results Result Diagram: 04/03/17 0531 04/03/17 0531 Results 24 hrs Laboratory Tests Test 04/03/17 05:31 White Blood Count 13.3 H Red Blood Count 5.05 Hemoglobin 14.6 Hematocrit 44.2 Mean Corpuscular Volume 87.5 Mean Corpuscular Hemoglobin 28.9 L Mean Corpuscular Hemoglobin Concent 33.0 Red Cell Distribution Width 13.7 Platelet Count 238 Mean Platelet Volume 10.0 Neutrophils % 60.0 Lymphocytes % 27.3 Monocytes % 9.1 Eosinophils % 2.6 Basophils % 0.5 Nucleated Red Blood Cells % 0.0 Neutrophils # (Manual) 8.0 H Lymphocytes # 3.6 H Monocytes # 1.2 H Eosinophils # 0.3 Basophils # 0.1 Nucleated Red Blood Cells # 0.0 Sodium Level 142 Potassium Level 3.6 Chloride Level 100 Carbon Dioxide Level 28 Anion Gap 18 H Blood Urea Nitrogen 10 Creatinine 0.90 Glucose Level 99 Calcium Level 9.0 Phosphorus Level 3.0 Magnesium Level 2.2 Medications Medications Current Medications Hydralazine HCl (Apresoline) 10 mg Q4H PRN IV ELEVATED SYSTOLIC BP Last administered on 04/02/17 08:49; Admin Dose 10 MG; Start 04/01/17 at 03:00 Ondansetron HCl 4 mg 4 mg Q6H PRN IV NAUSEA AND/OR VOMITING Last administered on 04/01/17 03:22; Admin Dose 4 MG; Start 04/01/17 at 03:00 Potassium Chloride/Dextrose/ Sod Cl (D5-1/2ns + KCl 20 Meq) 1,000 ml @ 100 mls/ hr Q10H IV Last administered on 04/02/17 18:44; Admin Dose 100 MLS/HR; Start 04/01/17 at 12:42 Enoxaparin Sodium (Lovenox) 40 mg DAILY@07 SC Last administered on 04/03/17 09 :48; Admin Dose 40 MG; Start 04/02/17 at 07:00 Amlodipine Besylate (Norvasc) 10 mg DAILY PO Last administered on 04/03/17 08: 50; Admin Dose 10 MG; Start 04/03/17 at 09:00 Famotidine (Pepcid Iv) 20 mg BID IV Last administered on 04/03/17 08:50; Admin Dose 20 MG; Start 04/03/17 at 09:00 Acetaminophen/ Hydrocodone Bitart ([place] (5/325)) 1 tab Q4H PRN PO pain 4-6; Start 04/03/17 at 10:30 Morphine Sulfate (morphine) 1 mg Q4H PRN IV pain 7-10; Start 04/03/17 at 10:30 Acetaminophen (Tylenol Tab) 325 mg Q4H PRN PO PAIN AND OR ELEVATED TEMP; Start 04/03/17 at 10:30 CURTIS WYATT Apr 03, 2017 14:52
[2017-04-03] MEDS ORDERED: GUAIFENESIN/CODEINE 5ML CUP PO PRN (15:00)
[2017-04-03 20:12] VITALS: BP 128/84; RESP 18
[2017-04-03] MEDS: FAMOTIDINE 20 MG TAB PO SCH (20:29)
[2017-04-04 02:11] VITALS: BP 158/95; RESP 16
[2017-04-04 05:44] LABS: BASOPHIL # 0.1 10^3/ul (0.0-0.1); BASOPHILS % 0.6 % (0.0-2.0); EOSINOPHILS # 0.4 10^3/ul (0.0-0.5); EOSINOPHILS % 3.7 % (0.0-7.0); HEMATOCRIT 41.9 % (42.0-52.0); LYMPHOCYTES # 3.1 10^3/ul (0.8-2.9); LYMPHOCYTES % 27.3 % (15.0-51.0); MEAN CORPUSCULAR HEMOGLOBIN 28.9 pg (29.0-33.0); MEAN CORPUSCULAR HGB CONC 33.4 g/dl (32.0-37.0); MEAN CORPUSCULAR VOLUME 86.6 fl (82.0-101.0); MEAN PLATELET VOLUME 9.9 fl (7.4-10.4); MONOCYTE # 1.1 10^3/ul (0.3-0.9); MONOCYTES % 9.8 % (0.0-11.0); PLATELET COUNT 214 10^3/UL (140-415); RED BLOOD COUNT 4.84 10^6/ul (4.70-6.10); RED CELL DISTRIBUTION WIDTH 13.8 % (11.5-14.5); WHITE BLOOD COUNT 11.2 10^3/ul (4.8-10.8)
[2017-04-04 06:12] LABS: CALCIUM 8.8 mg/dl (8.4-10.2); CREATININE 0.89 mg/dl (0.61-1.24); MAGNESIUM 2.2 mg/dl (1.7-2.5); PHOSPHORUS 4.3 mg/dl (2.5-4.9); POTASSIUM 3.5 mmol/L (3.5-5.1)
[2017-04-04] MEDS: ENOXAPARIN 40 MG/0.4 ML SYG SC SCH (06:21)
[2017-04-04 07:21] VITALS: BP 138/76; RESP 20
[2017-04-04] MEDS: AMLODIPINE 10 MG TAB PO SCH (08:03)
[2017-04-04] MEDS: FAMOTIDINE 20 MG TAB PO SCH ×2 (08:03→20:33)
[2017-04-04] MEDS ORDERED: AMLO-147 PO (12:41)
[2017-04-04 14:21] VITALS: BP 134/74; RESP 20
--- NOTE | 2017-04-04 16:22 | PN ---
Date/Time of Note Date/Time of Note DATE: 04/04/17 TIME: 16:20 Assessment/Plan VTE Prophylaxis VTE Prophylaxis Intervention: ambulation, SCD's Lines/Catheters IV Catheter Type (from Nrs): Peripheral IV Assessment/Plan Chief Complaint/Hosp Course Patient is a 71-year-old male with no significant past medical history presents with abdominal pain, found to have small bowel obstruction and incarcerated hernia Assessment and problem list Abdominal pain Small bowel obstruction Incarcerated hernia s/p abdominal mesh repair Hypertensive urgency Morbid obesity Leukocytosis, resolving Hypokalemia, resolving mild Plan -patient states he has difficulty walking today, although it was witnessed that he was standing up the day prior. Will order physical therapy and dispo accordingly. -Status post abdominal mesh per general surgery, cleared to f/u outpatient s/p mesh placement. -amlodipine controlling blood pressure well -cough suppressant as it hurts when patient coughs. Problems: Subjective 24 Hr Interval Summary Free Text/Dictation states he can not walk Exam/Review of Systems Vital Signs Vitals Vital Signs Date Time Temp Pulse Resp B/P Pulse Ox O2 Delivery O2 Flow Rate FiO2 04/04/17 14:21 97.9 85 20 134/74 94 04/01/17 15:21 Nasal Cannula 2.0 Intake and Output 04/03/17 04/03/17 04/04/17 15:00 23:00 07:00 Intake Total 700 ml 840 ml 400 ml Balance 700 ml 840 ml 400 ml Exam Physical exam General: Patient is laying in bed and answers questions appropriately Mentation: Patient is alert and oriented 4, Head: Normocephalic atraumatic Eyes: EOMI, pupils reactive to light Neck: Supple, nontender, midline Respiratory: Clear to auscultation bilaterally Cardiovascular: regular rate, no obvious murmurs Gastrointestinal: minimal tenderness to palpation, abdominal surgical site with bandage, CDI. Neurological: Moves all extremities spontaneously Skin: No new skin lesions Results Result Diagram: 04/04/1752004/04/1721 Results 24 hrs Laboratory Tests Test 04/04/17 05:21 White Blood Count 11.2 H Red Blood Count 4.84 Hemoglobin 14.0 Hematocrit 41.9 L Mean Corpuscular Volume 86.6 Mean Corpuscular Hemoglobin 28.9 L Mean Corpuscular Hemoglobin Concent 33.4 Red Cell Distribution Width 13.8 Platelet Count 214 Mean Platelet Volume 9.9 Neutrophils % 58.0 Lymphocytes % 27.3 Monocytes % 9.8 Eosinophils % 3.7 Basophils % 0.6 Nucleated Red Blood Cells % 0.0 Neutrophils # (Manual) 7 Lymphocytes # 3.1 H Monocytes # 1.1 H Eosinophils # 0.4 Basophils # 0.1 Nucleated Red Blood Cells # 0.0 Sodium Level 142 Potassium Level 3.5 Chloride Level 99 Carbon Dioxide Level 26 Anion Gap 21 H Blood Urea Nitrogen 14 Creatinine 0.89 Glucose Level 96 Calcium Level 8.8 Phosphorus Level 4.3 Magnesium Level 2.2 Medications Medications Current Medications Hydralazine HCl (Apresoline) 10 mg Q4H PRN IV ELEVATED SYSTOLIC BP Last administered on 04/02/17 08:49; Admin Dose 10 MG; Start 04/01/17 at 03:00 Ondansetron HCl (Zofran Inj) 4 mg Q6H PRN IV NAUSEA AND/OR VOMITING Last administered on 04/01/17 03:22; Admin Dose 4 MG; Start 04/01/17 at 03:00 Enoxaparin Sodium (Lovenox) 40 mg DAILY@07 SC Last administered on 04/04/17 06 :21; Admin Dose 40 MG; Start 04/02/17 at 07:00 Amlodipine Besylate (Norvasc) 10 mg DAILY PO Last administered on 04/04/17 08: 03; Admin Dose 10 MG; Start 04/03/17 at 09:00 Acetaminophen/ Hydrocodone Bitart ([place] (5/325)) 1 tab Q4H PRN PO pain 4-6; Start 04/03/17 at 10:30 Morphine Sulfate (morphine) 1 mg Q4H PRN IV pain 7-10; Start 04/03/17 at 10:30 Acetaminophen (Tylenol Tab) 325 mg Q4H PRN PO PAIN AND OR ELEVATED TEMP; Start 04/03/17 at 10:30 Guaifenesin/ Codeine Phosphate (Robitussin Ac Liquid Cup) 10 ml Q4H PRN PO cough; Start 04/03/17 at 15:00 Famotidine (Pepcid) 20 mg BID PO Last administered on 04/04/17 08:03; Admin Dose 20 MG; Start 04/03/17 at 21:00 CURTIS WYATT Apr 04, 2017 16:22
[2017-04-04 20:51] VITALS: BP 153/93; RESP 18
[2017-04-04 22:13] VITALS: BP 149/86; PULSE 81
[2017-04-05 02:47] VITALS: BP 152/74; RESP 18
[2017-04-05] MEDS: ENOXAPARIN 40 MG/0.4 ML SYG SC SCH (06:02)
[2017-04-05 08:32] VITALS: BP 142/79; RESP 20
[2017-04-05] MEDS: FAMOTIDINE 20 MG TAB PO SCH ×2 (09:29→21:13)
[2017-04-05] MEDS: AMLODIPINE 10 MG TAB PO SCH (09:30)
--- NOTE | 2017-04-05 12:37 | PN ---
Date/Time of Note Date/Time of Note DATE: 04/05/17 TIME: 12:34 Assessment/Plan VTE Prophylaxis VTE Prophylaxis Intervention: ambulation Lines/Catheters IV Catheter Type (from Nrs): Peripheral IV Assessment/Plan Chief Complaint/Hosp Course Patient is a 71-year-old male with no significant past medical history presents with abdominal pain, found to have small bowel obstruction and incarcerated hernia Assessment and problem list Abdominal pain Small bowel obstruction Incarcerated hernia s/p abdominal mesh repair Unstable gait Hypertensive urgency Morbid obesity Leukocytosis, resolving Hypokalemia, resolving mild Plan -patient states he still has difficulty walking today, although it was witnessed that he was standing up the day prior. Will order physical therapy and dispo accordingly. -Status post abdominal mesh per general surgery, cleared to f/u outpatient s/p mesh placement. -kub for continued abdominal pain. very mild. -amlodipine controlling blood pressure well -cough suppressant as it hurts when patient coughs. Problems: Subjective 24 Hr Interval Summary Free Text/Dictation Still states he is weak walking and in pain, although able to sit in chair perfectly fine. Exam/Review of Systems Vital Signs Vitals Vital Signs Date Time Temp Pulse Resp B/P Pulse Ox O2 Delivery O2 Flow Rate FiO2 04/05/17 08:32 98.1 83 20 142/79 96 04/01/17 15:21 Nasal Cannula 2.0 Intake and Output 04/04/17 04/04/17 04/05/17 15:00 23:00 07:00 Intake Total 820 ml 400 ml Output Total 1 ml Balance 820 ml 399 ml Exam Physical exam General: Patient is laying in bed and answers questions appropriately Mentation: Patient is alert and oriented 4, Head: Normocephalic atraumatic Eyes: EOMI, pupils reactive to light Neck: Supple, nontender, midline Respiratory: Clear to auscultation bilaterally Cardiovascular: regular rate, no obvious murmurs Gastrointestinal: minimal tenderness to palpation, abdominal surgical site with bandage, CDI. Neurological: Moves all extremities spontaneously Skin: No new skin lesions Results Result Diagram: 04/04/1752004/04/17520 Medications Medications Current Medications Hydralazine HCl (Apresoline) 10 mg Q4H PRN IV ELEVATED SYSTOLIC BP Last administered on 04/02/17t 08:49; Admin Dose 10 MG; Start 04/01/17 at 03:00 Ondansetron HCl (Zofran Inj) 4 mg Q6H PRN IV NAUSEA AND/OR VOMITING Last administered on 04/01/17 03:22; Admin Dose 4 MG; Start 04/01/17 at 03:00 Enoxaparin Sodium (Lovenox) 40 mg DAILY@07 SC Last administered on 04/05/17 06 :02; Admin Dose 40 MG; Start 04/02/17 at 07:00 Amlodipine Besylate (Norvasc) 10 mg DAILY PO Last administered on 04/05/17 09: 30; Admin Dose 10 MG; Start 04/03/17 at 09:00 Acetaminophen/ Hydrocodone Bitart ([place] (5/325)) 1 tab Q4H PRN PO pain 4-6; Start 04/03/17 at 10:30 Acetaminophen (Tylenol Tab) 325 mg Q4H PRN PO PAIN AND OR ELEVATED TEMP; Start 04/03/17 at 10:30 Guaifenesin/ Codeine Phosphate (Robitussin Ac Liquid Cup) 10 ml Q4H PRN PO cough; Start 04/03/17 at 15:00 Famotidine (Pepcid) 20 mg BID PO Last administered on 04/05/17 09:29; Admin Dose 20 MG; Start 04/03/17 at 21:00 CURTIS WYATT Apr 05, 2017 12:37
[2017-04-05 15:20] VITALS: BP 155/87; RESP 20
[2017-04-05 21:24] VITALS: BP 152/83; RESP 18
--- NOTE | 2017-04-06 02:08 | RADRPT ---
PROCEDURE: XR Abdomen. CLINICAL INDICATION: Abdominal pain. TECHNIQUE: AP abdomen x-ray. COMPARISON: CT examination of the abdomen and pelvis dated 04/03/2017 FINDINGS: The bowel gas pattern is normal. There is no evidence of obstruction. Gallstones are again seen. No unusual calcifications over the urinary tracts. Hazy opacity over the abdomen may represent ascite s versus patient body habitus. No ascites was seen on CT examination of the abdomen and pelvis date d 04/03/2017. Degenerative changes in the lumbar spine with mild levoscoliosis and dextroscoliosis. IMPRESSION: 1. Nonobstructive nonspecific bowel gas pattern. 2. Hazy opacity of the abdomen may represent ascites versus patient body habitus, without identifie d ascites and CT examination dated 04/01/2017 3. Gallstones. RPTAT: [facility] Physician Mati Date Time Electronically viewed and signed by Physician Mati on 04/06/2017 02:08 RS/
[2017-04-06 02:58] VITALS: BP 156/86; RESP 18
[2017-04-06] MEDS: ENOXAPARIN 40 MG/0.4 ML SYG SC SCH (05:57)
[2017-04-06 08:00] VITALS: BP 130/75; PULSE 70; RESP 15
[2017-04-06] MEDS: FAMOTIDINE 20 MG TAB PO SCH (08:19)
[2017-04-06] MEDS: AMLODIPINE 10 MG TAB PO SCH (08:19)
--- NOTE | 2017-04-06 11:23 | PN ---
Date/Time of Note Date/Time of Note DATE: 04/06/17 TIME: 11:20 Assessment/Plan VTE Prophylaxis VTE Prophylaxis Intervention: SCD's Lines/Catheters IV Catheter Type (from Nrsg): Peripheral IV Assessment/Plan Chief Complaint/Hosp Course Patient is a 71-year-old male with no significant past medical history presents with abdominal pain, found to have small bowel obstruction and incarcerated hernia Assessment and problem list Abdominal pain Small bowel obstruction Incarcerated hernia s/p abdominal mesh repair Unstable gait Hypertensive urgency Morbid obesity Leukocytosis, resolving Hypokalemia, resolving mild Plan -patient states he still has difficulty walking today, although it was witnessed that he was standing up the day prior. Will order physical therapy and dispo accordingly. PT has been called on multiple occasions, without call back that PT eval is holding up DC. -Status post abdominal mesh per general surgery, cleared to f/u outpatient s/p mesh placement. -kub for continued abdominal pain. very mild. -amlodipine controlling blood pressure well -cough suppressant as it hurts when patient coughs. DISPO: Need documentation from PT stating no issues ambulating, then okay to DC with amlodipine, RX in chart. Problems: Subjective 24 Hr Interval Summary Free Text/Dictation patient still complains of weakness and mild abdominal pain Exam/Review of Systems Vital Signs Vitals Vital Signs Date Time Temp Pulse Resp B/P Pulse Ox O2 Delivery O2 Flow Rate FiO2 04/06/17 08:00 70 15 130/75 95 Room Air 04/06/17 02:58 97.9 Intake and Output 04/05/17 04/05/17 04/06/17 15:00 23:00 07:00 Intake Total 300 ml 420 ml Balance 300 ml 420 ml Exam Physical exam General: Patient is laying in bed and answers questions appropriately Mentation: Patient is alert and oriented 4, Head: Normocephalic atraumatic Eyes: EOMI, pupils reactive to light Neck: Supple, nontender, midline Respiratory: Clear to auscultation bilaterally Cardiovascular: regular rate, no obvious murmurs Gastrointestinal: minimal tenderness to palpation, abdominal surgical site with bandage, CDI. Neurological: Moves all extremities spontaneously Skin: No new skin lesions Results Result Diagram: 04/04/1752004/04/17520 Medications Medications Current Medications Hydralazine HCl (Apresoline) 10 mg Q4H PRN IV ELEVATED SYSTOLIC BP Last administered on 04/02/17 08:49; Admin Dose 10 MG; Start 04/01/17 at 03:00 Ondansetron HCl (Zofran Inj) 4 mg Q6H PRN IV NAUSEA AND/OR VOMITING Last administered on 04/01/17 03:22; Admin Dose 4 MG; Start 04/01/17 at 03:00 Enoxaparin Sodium (Lovenox) 40 mg DAILY@07 SC Last administered on 04/06/17 05 :57; Admin Dose 40 MG; Start 04/02/17 at 07:00 Amlodipine Besylate (Norvasc) 10 mg DAILY PO Last administered on 04/06/17 08: 19; Admin Dose 10 MG; Start 04/03/17 at 09:00 Acetaminophen/ Hydrocodone Bitart ([place] (5/325)) 1 tab Q4H PRN PO pain 4-6; Start 04/03/17 at 10:30 Acetaminophen (Tylenol Tab) 325 mg Q4H PRN PO PAIN AND OR ELEVATED TEMP; Start 04/03/17 at 10:30 Guaifenesin/ Codeine Phosphate (Robitussin Ac Liquid Cup) 10 ml Q4H PRN PO cough; Start 04/03/17 at 15:00 Famotidine (Pepcid) 20 mg BID PO Last administered on 04/06/17 08:19; Admin Dose 20 MG; Start 04/03/17 at 21:00 CURTIS WYATT Apr 06, 2017 11:23
--- NOTE | 2017-04-06 18:18 | PDOCDIS ---
Discharge Instructions CONDITION Patient Condition: Stable HOME CARE INSTRUCTIONS: Special Diet: NPO FOLLOW UP/APPOINTMENTS Follow-up Plan Please follow up with Dr. Cao within 1-2 weeks. Please take medications as directed CURTIS WYATT Apr 06, 2017 18:18
--- NOTE | 2017-04-06 18:21 | DS ---
Date/Time of Note Date/Time of Note DATE: 04/06/17 TIME: 18:18 Discharge Summary Admission/Discharge Info Admit Date/Time Apr 01, 2017 at 00:46 Discharge Date/Time Patient Condition: Stable Hx of Present Illness This is a 71-year-old morbidly obese male with a history of hypertension, osteoarthritis, bilateral knee surgery who presented to emergency department complaining of abdominal pain. Pain started about a week ago and has been progressively getting worse. It is diffuse, but mainly located in the periumbilical area. He said 2 or 3 days ago, he noticed swelling in the periumbilical area and he said that is where it hurts the most. Initially pain was mild and as such he did not seek help but when started getting worse he decided to come to the ER for evaluation. He also reported associated nausea and having had nonbilious nonbloody vomiting. When presented to the ER, blood pressure was 231/129. Labs shows WBC of 12.3. CT abdomen/pelvis shows Partial proximal small bowel obstruction related to a ventral supraumbilical hernia estimated at 5 cm and containing mildly dilated loop of jejunum, collapse of the small bowel distal to the hernia is present and cholelithiasis without cholecystitis. Right upper quadrant ultrasound shows fatty liver. Once patient was admitted, he continues complaining of abdominal pain. He refused placement of an NG tube, but he said he will reconsider it in the morning. Hospital Course Patient is a 71-year-old male with no significant past medical history presents with abdominal pain, found to have small bowel obstruction and incarcerated hernia Discharge Diagnosis Abdominal pain Small bowel obstruction Incarcerated hernia s/p abdominal mesh repair Unstable gait Hypertensive urgency Morbid obesity Leukocytosis, resolving Hypokalemia, resolving mild Patient underwent uneventful mesh placement for incarcerated hernia repair by Dr. Cao, however after the surgery, patient stated that he could not walk well. This was suspicious as I had observed the patient standing earlier. PT was ordered for the patient, who cleared the patient to ambulate with no issue. The patient was also started on amlodipine during this visit as he had persistent elevated blood pressure. It was thoroughly explained to the patient that he needs to follow up with Dr. Cao and his primary care provider and the patient understands. Home Meds Active Scripts Amlodipine Besylate* (Amlodipine Besylate*) 10 Mg Tablet, 10 MG PO DAILY for 30 Days, #30 TAB 2 Refills Prov:CURTIS WYATT 04/04/17 Primary Care Provider Care Physician No Primary Time spent on discharge: > 30 minutes CURTIS WYATT Apr 06, 2017 18:21
[2017-04-06 19:30] VITALS: BP_SYST 131; BP_SYST 161; BP_DIAS 76; BP_DIAS 91; RESP 18
== END 2017-04-06 21:00 | disposition home or self-care (01) | DRG 354 ==
LOC: E/R 19:20 → MS2 04-01 00:46
PROVIDERS: ADMIT Internal Medicine; ATTEND Internal Medicine
PROC: 0WUF0JZ Supplement Abdominal Wall with Synthetic Substitute, Open Approach (ICD-10-PCS; principal; 2017-04-01 15:00)
DX: K43.6 Other and unspecified ventral hernia with obstruction, without gangrene (principal); K56.69 Other intestinal obstruction; R65.10 Systemic inflammatory response syndrome (SIRS) of non-infectious origin without acute organ dysfunction; Z68.42 Body mass index [BMI] 45.0-49.9, adult; E66.01 Morbid (severe) obesity due to excess calories; K76.89 Other specified diseases of liver; I16.0 Hypertensive urgency; I10 Essential (primary) hypertension; E87.6 Hypokalemia; R26.9 Unspecified abnormalities of gait and mobility; Z87.39 Personal history of other diseases of the musculoskeletal system and connective tissue
CPT/HCPCS: 36415; 71010; 74000; 74176; 76705; 80048; 80053; 81003; 83690; 83735; 84100; 84484; 85025; 93005; 96374; 96375; 97162; C1781; C9113; J0360; J0696; J1100; J1170; J1200; J1650; J1720; J1885; J2250; J2270; J2370; J2405; J2765; J2795; J3010; J3480; J7040; J7042; J7999